=== PATIENT | female | born 1980 | race Caucasian/White ===

== ENCOUNTER 2021-05-05 17:42 | Emergency (ER) | payer MEDICAID, OTHER ==
[~2021-05-05] VITALS: Ht 167.6 cm; Wt 100.0 kg
[2021-05-05 17:44] VITALS: BP 133/90
== END 2021-05-05 18:25 | disposition home or self-care (01) ==
LOC: ER 17:43
DX: S00.81XA Abrasion of other part of head, initial encounter (principal); S80.211A Abrasion, right knee, initial encounter; S80.212A Abrasion, left knee, initial encounter; M25.561 Pain in right knee; M25.562 Pain in left knee; W01.0XXA Fall on same level from slipping, tripping and stumbling without subsequent striking against object, initial encounter; Y93.89 Activity, other specified; Y92.89 Other specified places as the place of occurrence of the external cause; Y99.8 Other external cause status
CPT/HCPCS: 99281

== ENCOUNTER 2022-10-06 13:09 | Emergency (ER) | payer MEDICAID ==
[~2022-10-06] VITALS: Ht 162.6 cm; Wt 87.7 kg
[~2022-10-06 13:09] MED LIST: NO HOME MEDS
[2022-10-06 13:15] VITALS: BP 134/105
== END 2022-10-06 15:03 | disposition home or self-care (01) ==
LOC: ER 13:09
DX: S61.300A Unspecified open wound of right index finger with damage to nail, initial encounter (principal); X58.XXXA Exposure to other specified factors, initial encounter; Y93.89 Activity, other specified; Y92.89 Other specified places as the place of occurrence of the external cause; Y99.8 Other external cause status
CPT/HCPCS: 99281

== ENCOUNTER 2025-05-19 17:41 | Emergency (ER) | payer MEDICAID ==
[~2025-05-19] VITALS: Ht 167.6 cm; Wt 101.8 kg
[2025-05-19 17:42] VITALS: BP 153/95; PULSE 98; RESP 16; O2SAT 96
[2025-05-19] MEDS: LIDOcaine 1% 30ml preserv. free vial IJ STA (21:08)
--- NOTE | 2025-05-19 22:07 | Physician Documentation ---
History of Present Illness ~ Chief Complaint: Laceration Stated Complaint: FINGER LAC Time Seen by MD: 18:28 Primary Medical Doctor: Abraham Jewell [facility] 44-year-old female that presents to the emergency room for evaluation of a laceration to her 1st index finger on her right hand. She reports that she was doing dishes when a glass broke and cut her finger. Patient reports that the bleeding is controlled. Reports she is not up-to-date on. Her tetanus but would not like 1 today. Tetanus Within 5 Years: Yes Medication Reconciliation Allergies: Coded Allergies: No Known Allergies (Unverified , 05/19/25) Miscellaneous Medications Home Med List (No Home Medications), (Reported) Past Medical History Past Medical History: No Pertinent History Past Surgical History: no surgical history Alcohol Use: None Drug Use: none Lives with: Family Lives In: Home Occupation: other Review of Systems ROS As stated above in the HPI, otherwise all systems are reviewed and negative. Physical Exam Vital Signs: Temperature: 98.7, Heart Rate: 98, Respiratory Rate: 16, BP: 153/95, Pulse Oximetry: 96, Weight: 101.850 Oxygen Flow Rate: 0 Physical Exam VITALS: Reviewed and as above. GENERAL: Alert, no apparent distress. HEENT: Normocephalic, atraumatic, PERRL, EOMI, dry mucosa, no erythema RESPIRATORY: Lungs clear, normal breath sounds, no respiratory distress. CHEST: No accessory muscle use, no retractions CV: Regular rate, rhythm, no edema, no murmur, No: JVD GI: Soft, non-tender, bowels sounds present, no rebound, guarding, or rigidity BACK: No CVA tenderness, or swelling MUSCULOSKELETAL No deformities, no edema to 1st digit on the right hand SKIN: Warm and dry, no rash, laceration to the 1st digit on the right hand NEURO: Oriented x4, No motor or sensory deficit PSYCH: Normal mood and affect, no agitation Progress Results/Orders Results/Orders Completed Orders - PATTIE ROCHA [employer] Lidocaine 1% 30ml Vial (Xylocaine 1% Via (05/19/25 20:56) Vital Signs 05/19/25 17:42 Temp 98.7 Pulse 98 Resp 16 B/P (MAP) 153/95 Pulse Ox 96 O2 Flow Rate 0 Medical Decision Making Findings Wound inspected under direct bright light with good visualization. Area with linear laceration across soft tissue through adipose without exposure of muscle belly or tendon. No overt foreign body. Area hemostatic. Neurovascular exam congruent with above. Area extensively irrigated with sterile normal saline under pressure. Laceration repaired in simple fashion as below (please see procedure note for further details). Patient tolerated procedure well and neurovascular exam intact and unchanged post repair with intact distal pulses and cap refill_. Cautious return precautions discussed w/ full understanding. Wound care discussed. Prompt follow up with primary care physician discussed and return for suture removal in 10 days. Six sutures placed without complication. Dressing applied. Patient will follow up with primary care provider for suture removal or return to the emergency department for removal of the sutures. Differential Dx:Considerations: Include: Abrasion, Avulsion, Contusion, Laceration, Fracture, Hematoma, Neurovascular injury, Retained foreign body, Other Departure Disposition: 01 HOME / SELF CARE / HOMELESS Impression: Primary Impression: Laceration Discharge Instructions: Laceration Care, Adult, [id number] Additional Instructions: Wound inspected under direct bright light with good visualization. Area with linear laceration across soft tissue through adipose without exposure of muscle belly or tendon. No overt foreign body. Area hemostatic. Neurovascular exam congruent with above. Area extensively irrigated with sterile normal saline under pressure. Laceration repaired in simple fashion as below (please see procedure note for further details). Patient tolerated procedure well and neurovascular exam intact and unchanged post repair with intact distal pulses and cap refill_. Cautious return precautions discussed w/ full understanding. Wound care discussed. Prompt follow up with primary care physician discussed and return for suture removal in 10 days. Six sutures placed without complication. Dressing applied. Please follow up with primary care provider for suture removal or return to the emergency department for removal of the sutures. Return to the emergency department if you have any worsening or recurrent symptoms or additional concerning symptoms that we discussed here today. Referrals: NO PRIMARY CARE PROVIDER (PCP) Education Educated: Patient Educated regarding: diagnosis, treatment, need for follow up Signature Scribe Signature: A Attestation: Scribed for Pattie Rocha by TRACIE Hernandez . 05/19/25 22:07 PATTIE ROCHA May 19, 2025 22:07
[2025-05-19 22:15] VITALS: TEMP 98.7
== END 2025-05-19 22:17 | disposition home or self-care (01) ==
LOC: ER 17:41
DX: S61.211A Laceration without foreign body of left index finger without damage to nail, initial encounter (principal); W25.XXXA Contact with sharp glass, initial encounter; Y93.G1 Activity, food preparation and clean up; Y92.89 Other specified places as the place of occurrence of the external cause; Y99.8 Other external cause status
CPT/HCPCS: 12002; 99282; J7030; 12001; A6258; A6449